=== PATIENT | female | born 1965 | race Caucasian/White ===

== ENCOUNTER 2018-03-08 08:42 | Inpatient (IN) ==
[~2018-03-08 08:42] MED LIST: LIDOCAINE 1% (10mg/ml) 2mL INJ PF SDV ID ONE
[2018-03-08] MEDS ORDERED: ENOXAPARIN 40 MG/0.4 ML INJECTION SQ ONE (09:00)
[2018-03-08 09:12] VITALS: BMI 39.2
[2018-03-08] MEDS: LR 1,000 ML IV SCH ×3 (09:38→18:26)
[2018-03-08] MEDS ORDERED: NOZIN NASAL SWAB NAS ONE (10:00)
--- NOTE | 2018-03-08 10:45 | Anesthesia Preoperative Report ---
Anesthesia Preoperative Record - Date and Time Date: 03/08/18 Preoperative Diagnosis: Sigmoid Colon Resection C18.7 NPO Since Date: 03/07/18 NPO Since Time: 00:00 Allergies/Adverse Reactions: Allergies Allergy/AdvReac Type Severity Reaction Status Date / Time clarithromycin Allergy Unknown RASH Verified 03/08/18 09:28 codeine Allergy Unknown DIZZINESS,N Verified 03/08/18 09:28 AUSEA Sulfa (Sulfonamide Allergy Unknown RASH Verified 03/08/18 09:28 Antibiotics) - Vital Signs Vital Signs: Pulse Rate 77 03/08/18 09:32 Respiratory Rate 15 03/08/18 08:58 Blood Pressure 133/87 03/08/18 08:58 Pulse Oximetry 93 03/08/18 08:58 Height and Weight: Height 1.61 m Weight 102.2 kg Body Mass Index 39.2 - Medications Inpatient Medications: Current Medications Ertapenem 1 g/ Sodium Chloride 100 mls @ 200 mls/hr IV PREOP ONE Stop: 03/08/18 14:10 Lactated Ringer's (Lactated Ringers) 1,000 mls @ 50 mls/hr IV .Q20H CY Last Admin: 03/08/18 09:38 Dose: 50 mls/hr Home Medications: Home Medications Medication Instructions Recorded Confirmed Type Albuterol Sulfate [Proventil Hfa 6.7 gm IH PRN PRN #0 10/16/12 03/08/18 History 90mcg] Multivitamin [Multivitamins] 1 each PO DAILY #0 10/16/12 03/08/18 History Budesonide/Formoterol 80/4.5 6.9 gm IH DAILY #0 06/24/13 03/08/18 History [Symbicort Inhaler] EPINEPHrine Pen [Epipen] 0.3 mg IM PRN PRN #0 06/24/13 03/07/18 History Butalbital/Aspirin/Caffeine 50 mg PO PRN PRN #0 06/21/15 03/08/18 History [Fiorinal 50-325-40 mg Capsule] Cetirizine HCl [Zyrtec] 1 cap PO DAILY #0 cap 06/21/15 03/08/18 History Chlorthalidone 1 tab PO WB #0 tab 06/21/15 03/08/18 History Levothyroxine Tab [Synthroid] 1 tab PO HS #0 tab 06/21/15 03/08/18 History Lutein 6 mg PO DAILY #0 06/21/15 03/08/18 History Montelukast Sodium [Singulair] 10 mg PO HS #0 tab 06/21/15 03/08/18 History Glucophage (metformin) 500 mg 500 mg PO BID 01/29/18 03/08/18 History tablet Xanax (alprazolam) 0.25 mg tablet 0.25 mg PO BID PRN 01/29/18 03/08/18 History labetalol 100 mg tablet 100 mg PO BID 01/29/18 03/08/18 History Cyclobenzaprine [Flexeril] 1 tab PO PRN PRN 02/18/18 03/08/18 History Losartan Potassium [Cozaar] 100 mg PO DAILY 02/18/18 03/08/18 History Is Patient on Beta Martha?: Yes Beta Martha Last Dose Date/Time: 03/07/18 @ 2300 - Medical History Respiratory: Reports: Asthma, Sleep Apnea (doesn't use CPAP) Cardiovascular: Reports: Hypertension, Other (stress test 2015) Gastrointestional: Reports: Morbid Obesity, Other (COLON CANCER) Renal/Endocrine: Reports: Diabetes Mellitus Type 2 (pre-diabetic), Thyroid Disease (hypothyroidism) Other History: Reports: Cancer (COLON) - Surgical History HEENT Surgeries: Reports: Nose Surgery, Oral Surgery (wisdom teeth extraction) Respiratory Surgery/Treatments: Reports: Other (does not use cpap) GI Surgery/Treatments: Reports: Appendectomy Musculoskeletal Surgery/Tx: Reports: Knee Arthroscopy (left) Reproductive Surgery/Treatment: Reports: Hysterectomy Anesthesia Reactions: None Hx Family Anesthesia Reaction: No History of Motion Sickness: No - Social History Smoking Status: Never smoker Hx Chewing Tobacco Use: No Second Hand Exposure: No Substance Use Type: does not use Alcohol Intake: never Alcohol Intake Frequency: does not drink - Pertinent Findings Laboratory: CBC and BMP 03/08/18 09:06 03/08/18 09:06 BMP 03/08/18 09:06 Sodium 140 Potassium 3.1 L Chloride 100 Carbon Dioxide 28 BUN 12.0 Creatinine 0.8 Glucose 132 H Calcium 9.5 Liver Function 03/08/18 Range/Units 09:06 Total Bilirubin 0.80 (0.20-1.30) MG/DL AST 25 (14-36) U/L ALT 27 (1-35) U/L Alkaline Phosphatase 117 (38-126) U/L Albumin 4.6 (3.5-5.0) g/dL EKG: Sinus Rhythm - Physical Exam Respiratory Exam: Present: lungs clear, bilateral breath sounds equal Cardiovascular Exam: Present: regular rate and rhythm - Airway Assessment Mallampati Score: II TMD: 3 Fingerbreadths Neck Extension: fair Teeth: chipped teeth/crowns, other (right side of jaw clicks. ) Overall Assessment: may be difficult mask vent (morbidly obese), may be difficult intubation - ASA ASA Score: 3 - Plan Anesthesia: General Inhalation Gases - Discussion Discussion: Discussed risks/options/alternatives of anesthesia and questions answered. Patient consents. Nursing pain assessment noted. Present for Discussion: family member Attestation Statement: Prior to the delivery of any anesthetic medication, I examined the patient, developed the plan, obtained the patient's consent and discussed the risk and benefits of the procedure with the patient/guardian. - Additional Information Seen by Anesthesia: Yes
[2018-03-08] MEDS ORDERED: FentaNYL 250 MCG/5 ML INJECTION ONE ×2 (12:10→16:11)
[2018-03-08] MEDS ORDERED: SUCCINYLCHOLINE 20mg/mL 10mL INJECTION ONE (12:11)
[2018-03-08] MEDS ORDERED: ROCURONIUM 50 MG/5 ML INJECTION IVP ONE ×3 (12:11→15:23)
[2018-03-08] MEDS ORDERED: KETAMINE 500 MG/10 ML INJECTION ONE (12:12)
[2018-03-08] MEDS ORDERED: GLYCOPYRROLATE 0.4 MG/2 ML INJECTION ONE (12:15)
[2018-03-08] MEDS ORDERED: ONDANSETRON 4 MG/2 ML INJECTION ONE (13:15)
[2018-03-08] MEDS ORDERED: DEXAMETHASONE 4 MG/ML INJECTION ONE (13:15)
[2018-03-08] MEDS ORDERED: INDOCYANINE GREEN 25mg INJECTION ONE (13:25)
[2018-03-08] MEDS ORDERED: ERTAPENEM 1 G in NS 100 ML IV ONE (13:41)
[2018-03-08] MEDS ORDERED: SUGAMMADEX 200mg/2ml INJECTION IVP ONE (17:28)
--- NOTE | 2018-03-08 18:03 | General Surgery Procedure Note ---
Date of Procedure: 03/08/18 Surgeon: Nolan Postoperative Diagnosis: colon cancer Procedure: Low anterior colon resection Estimated Blood Loss: See Anesthesia Record.
--- NOTE | 2018-03-08 18:30 | Anesthesia Postoperative Note ---
- Date and Time Date: 03/08/18 Time: 18:28 - Status Patient Participated in Evaluation: Patient Participated in Person Vital Signs: Temperature 99.3 F 03/08/18 17:48 Pulse Rate 81 03/08/18 18:25 Respiratory Rate 10 03/08/18 18:25 Blood Pressure 111/57 03/08/18 18:25 Pulse Oximetry 97 03/08/18 18:25 Respiratory Function: Airway Patent, Regular Respirations Cardiovascular Function: Regular Pulse Mental Status: Alert and Oriented Pain Intensity: 4 Hydration: IV Infusing Complications During Recover: None Apparent Post Anesthesia Care Notes: Bi PAP will be readily available in ICU. - Follow-Up Instructions Instructions: Per Surgeon
[2018-03-08] MEDS ORDERED: ONDANSETRON 4 MG/2 ML INJECTION IVP PRN (18:56)
[2018-03-08] MEDS ORDERED: PROMETHAZINE 25 MG INJECTION IVP PRN (18:56)
[2018-03-08] MEDS: NS 1,000 ML IV SCH (19:02)
[2018-03-08] MEDS: MORPHINE SULFATE 10mg/ml INJECTION IV PRN (19:02)
[2018-03-08] MEDS: KETOROLAC 30 MG/ML INJECTION IVP PRN (20:24)
[2018-03-09] MEDS: MORPHINE SULFATE 10mg/ml INJECTION IV PRN ×3 (00:11→16:46)
[2018-03-09] MEDS: NS 1,000 ML IV SCH (05:55)
[2018-03-09] MEDS: KETOROLAC 30 MG/ML INJECTION IVP PRN ×3 (07:13→23:42)
[2018-03-09] MEDS: ENOXAPARIN 40 MG/0.4 ML INJECTION SQ SCH (09:33)
[2018-03-09] MEDS ORDERED: INSULIN ASPART 100unit/ml INJECTION SQ PRN (11:40)
[2018-03-09] MEDS ORDERED: NS 500 ML IV SCH (11:45)
[2018-03-09] MEDS: NS with KCL 20 mEq 1,000 ML IV SCH ×2 (12:09→23:03)
[2018-03-09] MEDS: FAMOTIDINE PB 20 MG/50 ML BAG IV SCH ×2 (12:15→23:46)
--- NOTE | 2018-03-09 12:15 | Progress Note ---
DATE 03/09/2018 POSTOP DAY #1 HISTORY OF PRESENT ILLNESS The patient is in the intensive care unit. The patient has been up in a chair once so far today. The patient has been doing well overall since her operation yesterday. She has had some low urine output and has needed to have fluid challenges of normal saline to help with the urine output. PHYSICAL EXAMINATION VITAL SIGNS: Temperature is 98.8 degrees Fahrenheit oral. Pulse is 98. Respiratory rate is 18. Blood pressure is 112/59. Oxygen saturation is 92% on oxygen at 1 liter per minute by nasal cannula. NEUROLOGIC: The patient is alert and oriented. ABDOMEN: Dressings are left in place at the abdominal incision. INTAKE AND OUTPUT Urine output has been adequate but borderline since the operation yesterday. LABORATORY DATA White blood cell count is 18,800 today with 14 bands. Hemoglobin is 11.5. Hematocrit is 34.2. Serum potassium was 3.1 at admission preoperatively yesterday. Serum potassium is 3.5 today. Serum sodium is 142. Serum creatinine is 1. Serum glucose was 154 this morning. The most recent glucometer reading was 158. IMPRESSION 1. Doing well overall since low anterior colon resection with primary colorectal anastomosis on 03/08/2018. 2. Hypokalemia. PLAN 1. Keep patient in the intensive care unit yet at this time. 2. Keep Briceño catheter in place yet at this time because of need for monitoring because of a low urine output which the patient has had. 3. Continue to get the patient up out of bed in a chair and ambulate the patient. 4. Continue Lovenox and sequential compression devices for deep venous thrombosis prophylaxis. 5. Continue incentive spirometry. 6. Intravenous fluids are going to be changed from normal saline to normal saline with 20 mEq KCl per liter to help correct the hypokalemia. 7. Intravenous Pepcid for GI prophylaxis. 8. Make sliding scale insulin available for glucose control. [facility]
--- NOTE | 2018-03-09 14:36 | Operative Note ---
DATE OF OPERATION 03/08/2018 PREOPERATIVE DIAGNOSES 1. Invasive colonic adenocarcinoma at mid sigmoid colon. 2. BMI of 39.5. POSTOPERATIVE DIAGNOSES 1. 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 2. BMI of 39.5. 3. Multiple solid hepatic nodules. 4. Incarcerated epigastric hernia. OPERATION Laparotomy, mobilization of splenic flexure of colon, low anterior colon resection with colorectal anastomosis, wedge excision and biopsy of two hepatic nodules and repair of incarcerated epigastric hernia. SURGEON Dr. Francisco SORT LINE Dr. Betancourt ANESTHESIA General. ASA Class 3 FINDINGS This patient did have a mass at the distal sigmoid colon. It was located just a short distance proximal to the peritoneal reflection at the peritoneal cul-de- sac. The patient was noted to have a short contracted mesentery at the left side of the colon. The mesentery was filled with more than the usual amount of adipose tissue with a short contracted mesentery in this patient. There was no long loop of sigmoid colon in this patient. There was no ascites present. There were no peritoneal implants present anywhere. No obvious enlarged palpable lymph nodes were seen anywhere in the mesentery of the sigmoid colon. As the abdominal incision was made, the patient was found to have an incarcerated epigastric hernia. There was a small fascial defect at the midline at the linea alba superior to the level of the umbilicus. Preperitoneal adipose tissue came out through this small fascial defect and was incarcerated at the subcutaneous tissue level. The patient was noted to have multiple white hard nodules at the liver. The patient had one white hard nodule which was between 5 and 10 mm in size at segment II of the left lobe of the liver. This was at the superior margin of segment II of the left lobe of the liver adjacent to the anterior coronary ligament. This was at the anterior surface of the liver and was visible. Another hard nodule could be palpated within segment III of the liver. This was not at the anterior surface of the liver. It was deeper within the liver but could still be palpated. It was a short distance beneath the anterior surface of the liver. When a wedge of this nodule was removed, it was found to be a solid hard white nodule over 1 cm in size. This was in segment III of the liver. The patient had another small white hard solid nodule at the liver at segment IV of the liver. This was at the superior end of segment IV of the liver so it would be in subsegment Cristobal. This was at the anterior surface of the liver and was visible. It looked similar to the other two nodules. These were the three largest nodules seen. The patient did have numerous other white firm nodules which were 1 to 2 mm in size throughout the right lobe of the liver as well as at other areas at the left lobe of the liver. There were enough of these tiny white nodules that all segments of the liver were probably involved with them. Most of the nodule in segment II of the liver was excised and submitted for frozen section examination by the pathologist. A wedge out of the center of the nodule at segment III of the liver was removed and submitted for frozen section examination by the pathologist. The pathologist did return a verbal frozen section examination report stating that it was not possible to determine the nature of the nodules precisely at frozen section examination. This appeared to be some type of tubular neoplasm. It could possibly be metastatic adenocarcinoma from the sigmoid colon tumor but this was not certain. Another possibility was that it might be a bile duct adenoma. The uterus and both fallopian tubers were absent as a result of pervious operative removal. Both ovaries appeared normal. DESCRIPTION OF OPERATION The patient was placed in supine position on the operating table. General anesthesia was satisfactorily induced. The patient was placed in low lithotomy position on the operating table. The abdomen and the external genitalia and the perianal area were all prepped and draped in routine sterile fashion. A midline vertically oriented abdominal incision was made and extended through the abdominal wall. As this incision was made at a level superior to the umbilicus at the midline, the incarcerated epigastric hernia was identified. The patient did have a hernia sac which was dissected out and excised and removed. The preperitoneal adipose tissue which was incarcerated within the hernia was also excised at this time. The midline incision was extended through the hernia as the incision was made. The peritoneal cavity was entered. An Oleg Wound Protector was placed at the incision. The sigmoid colon region of the abdomen was explored at this time. The sigmoid colon was mobilized medially. Peritoneum was divided at the base of the sigmoid colon mesentery on the left side of the mesentery. The peritoneum was divided at the left lateral gutter along the white line of Toldt. The peritoneum was divided at the base of the sigmoid colon mesentery at the left side of the mesentery down towards the pelvic cul-de-sac. The sigmoid colon was mobilized medially. The left ureter was dissected out and identified and carefully preserved from injury during this time. The position of the left ureter was referred to throughout the remainder of the operation to preserve the left ureter from any injury. The mesentery was short and contracted enough at the sigmoid colon that it was seen at this time that the patient would need to have mobilization of the splenic flexure in order to have a sigmoid colon resection and primary anastomosis. The incision was extended superiorly. The Oleg Wound Protector was kept in place. The Codman retractor was now assembled and used to provide exposure. The splenic flexure of the colon was mobilized. Some adhesions of greater omentum to the outside surface of the spleen were divided at this time to avoid any injury at the capsular surface of the spleen. The descending colon was mobilized medially. Peritoneum was divided along the white line of Toldt and the descending colon and splenic flexure were mobilized medially. The distal transverse colon was from the greater omentum. The splenic flexure of the colon was mobilized medially. It was thought that the splenic flexure of the colon in this patient was mobilized maximally. Attention was then directed back to the pelvis. The tumor in the distal sigmoid colon was just proximal to the rectosigmoid junction. Peritoneum was divided along the anterior surface of the colon at the rectosigmoid junction. The proximal rectum was dissected out at this time on the anterior side and on right and left sides. The rectum was dissected out down into the pelvis all the way down to about the mid-rectum level. A dissection plane was then extended around posterior to the rectum at the mid-rectum level. It was thought as this was being done that enough dissection had occurred to get more than 4 to 5 cm of uninvolved colon and rectum resected distal to the level of the tumor. A distal resection margin was selected with the intent to have more than 4 to 5 cm of distal colon and rectum beyond the tumor included in the resection specimen. The Contour stapler was applied to the mid rectum at this level and fired and used to divide the rectum at the mid rectum at the distal resection margin. Attention was then directed back to the mid sigmoid colon. The sigmoid colon had been mobilized medially. The position of the left ureter was again referred to and the left ureter was reidentified. The mesentery of the sigmoid colon was transilluminated at this time and blood vessels to the sigmoid colon were examined. A proximal resection margin was selected at the mid sigmoid colon. Even with all the mobilization of the splenic flexure, this would just barely allow the mid sigmoid colon to be brought down to the mid rectum for anastomosis without tension. A large blood vessel was identified going up to the colon just proximal to the proximal resection margin. This blood vessel was preserved. A proximal resection margin was selected. The mid sigmoid colon was divided at the proximal resection margin with the TLC75 linear cutter stapler. The sigmoid colon mesentery was then divided at the level of the mid sigmoid colon from the colon down towards the base of the mesentery. The sigmoid colon mesentery was divided by doubly clamping the mesentery with right angle clamps, dividing the mesentery between right angle clamps and ligating the pedicles of sigmoid colon mesentery with 0-Vicryl ligatures. As this division of the mesentery was continued down towards the base of the mesentery, the superior hemorrhoidal artery and vein were identified. The superior hemorrhoidal artery and vein were each dissected out and skeletonized. The superior hemorrhoidal vein was doubly clamped with right angle clamps, divided between clamps and ligated with 0-Vicryl suture. The superior hemorrhoidal artery was then separately doubly clamped with right angle clamps, divided between clamps and ligated with 0-Vicryl ligatures. The dissection was then continued the remainder of the way down to the base of the mesentery. The mesentery was then divided at the level of the base of the distal sigmoid colon mesentery by doubly clamping the mesentery at this level with right clamps, dividing the mesentery between clamps and ligating with 0- Vicryl ligatures. This dissection was continued to the level of the sacral promontory. At the level of the sacral promontory, the areolar tissue plane beneath the mesorectum was identified. Dissection was extended distally beneath the distal sigmoid colon and the proximal rectum in this areolar tissue plane with the monopolar electrosurgery device. This was done to get a total mesorectal excision of the mesentery associated with the proximal rectum which was divided and be in the correct plane of dissection beneath the distal sigmoid colon where the tumor was located. This dissection through this areolar tissue plane was continued distally until the distal resection margin at the mid rectum was reached. The specimen of distal sigmoid colon and proximal rectum was then removed and handed off and placed on a side table. The specimen was opened. The tumor was identified at the distal sigmoid colon. Consideration was given at this time as to whether or not any additional rectum could be removed to get a wider distal resection margin. Even with the splenic flexure maximally mobilized, it was noted that the proximal resection margin of the mid sigmoid colon would just barely reach down to the mid rectum in this patient with a short contracted mesentery. The peritoneal cavity had been explored to some extent earlier. Prior to constructing the anastomosis, a decision was made to more thoroughly explore the superior part of the peritoneal cavity. The liver was more closely examined at this time. The nodules at the liver were identified at this time. In order to have exposure of the liver to biopsy these nodules, the midline vertically oriented abdominal incision did need to be extended superiorly at this time. This did allow visualization of the two nodules which were visible at the anterior surface of the liver at the most superior margin of the liver adjacent to the diaphragm. The nodule at the anterior surface of the liver in liver segment II was adjacent to the anterior coronary ligament. This nodule was completely or nearly completely excised with Metzenbaum scissors at this time and submitted to the pathologist for frozen section examination. This was a wedge excision. The wedge excision site was then closed at this area with placement of some simple interrupted stitches using 3-0 Vicryl suture. Hemostasis appeared be satisfactory at this area. Another nodule could be palpated within segment III of the liver beneath the anterior surface of the liver. Scalpel was used to excise a wedge of the liver at this area. This wedge of liver did contain a piece of this white hard nodule at the center of the nodule. No attempt was made to excise the entire nodule. The wedge biopsy of the nodule specimen was submitted for frozen section examination. Some coagulation of bleeding points at this wedge biopsy site was performed with the monopolar electrosurgery device. This site at the anterior surface of the liver was then closed with a series of simple interrupted stitches using 3-0 Vicryl suture. This did appear to provide complete hemostasis at both of these sites. The pathologist did return a verbal frozen section examination report with results as described above. No attempt was made to biopsy the white nodule that was visible at the surface of the liver at segment IV of the liver. No attempt was made to excise any of the other tiny white nodules throughout the rest of the liver. Attention was directed back to performing the anastomosis of the mid sigmoid colon to the mid rectum. The staple line at the colon at the proximal resection margin was excised. The CEEA sizers were used at this time to see what type of stapling device to use. The 28-mm CEEA sizer was able to be easily introduced into the opening at the mid sigmoid colon at the proximal resection margin. The EthiYext brand, [id number] stapler was then selected for use. This was an end-to-end type of stapler. The anvil from the stapler was introduced into the opening at the mid sigmoid colon at the proximal resection margin. A pursestring stitch was placed around the margins of the colon at the proximal resection margin with 3-0 Prolene suture. The pursestring stitch was tied down around the anvil. The Ethicon brand [id number] stapler was then introduced into the rectum. The stapler was advanced through the rectum up to the level of the distal resection margin at the rectum. The trocar of the stapling device was advanced through the colon just anterior to the middle of the staple line. The anvil was then connected to the cartridge of the stapling device. The stapling device was then closed. The stapling device was fired. This did create a circular end-to-end anastomosis between the two ends of the colon and rectum. The stapling device was removed from the rectum. The stapling device was opened. There were two complete doughnuts of tissue in the stapling device. There appeared to be a good blood supply to the end of the mid sigmoid colon which had been brought down to the anastomosis. There was no tension on the anastomosis but the mid sigmoid colon was just able to be brought down to the anastomosis without tension without any extra colon to spare. There was no twisting of the anastomosis. The anastomosis was then tested. A rigid proctoscope was introduced into the rectum. Air was instilled into the rectum and colon with the rigid proctoscope. Air was noted to distend up the colon proximal to the anastomosis. Water was poured into the peritoneal cavity at the pelvis to cover the anastomosis before the air was instilled into the rectum and colon. Air was then noted to distend up the colon proximal to the anastomosis with no bubbling of air up through the water in the pelvis to suggest any leak at the anastomosis at this time. The anastomosis was thought to be airtight. The rigid proctoscope was removed from the rectum. The anastomosis was thought to be airtight at this time. Irrigation had been performed throughout the peritoneal cavity throughout the course of the operation. No further irrigation was performed at this time. Hemostasis appeared to be satisfactory throughout the peritoneal cavity. The Codman retractor was removed. The greater omentum was brought down over the loops of the intestine. The abdominal incision was closed. The fascial layer of the incision was closed with a continuous simple [id number] stitch using #1 PDS suture. Closure of the fascia at the level superior to the umbilicus did close the area where the epigastric hernia had previously been located. This did result in repair of the epigastric hernia by the end of the operation. Skin margins at the incision were reapproximated with skin homero. Sterile dressings were applied. Sponge, needle and instrument counts were all correct. The patient was taken out of low lithotomy position and returned back to supine position. The patient did appear to tolerate the operation well. The patient was transferred from the operating room to the recovery room in satisfactory condition. [facility]
[2018-03-09] MEDS ORDERED: FUROSEMIDE 20 MG/2 ML INJECTION IVP ONE (15:58)
[2018-03-09] MEDS ORDERED: PNEUMOCOCCAL 13 VACCINE 0.5ml INJECTION IM ONE (16:44)
[2018-03-10] MEDS: KETOROLAC 30 MG/ML INJECTION IVP PRN ×3 (07:14→19:54)
[2018-03-10] MEDS: ENOXAPARIN 40 MG/0.4 ML INJECTION SQ SCH (08:23)
[2018-03-10] MEDS ORDERED: LIDOCAINE 1% INJ 10 MG, POTASSIUM CHLORIDE INJ 10 MEQ in NS 100 ML IV SCH (08:45)
[2018-03-10] MEDS: POTASSIUM CHLORIDE IV SCH ×4 (09:04→14:01)
[2018-03-10] MEDS: 1/2 NS with KCL 20mEq 1,000 ML IV SCH ×2 (10:45→21:10)
[2018-03-10] MEDS: FAMOTIDINE PB 20 MG/50 ML BAG IV SCH ×2 (12:07→23:44)
[2018-03-10] MEDS ORDERED: BUMETANIDE 2.5mg/10ml INJECTION IVP ONE (15:40)
[2018-03-11] MEDS: KETOROLAC 30 MG/ML INJECTION IVP PRN ×2 (07:43→14:30)
[2018-03-11] MEDS: 1/2 NS with KCL 20mEq 1,000 ML IV SCH ×3 (07:46→22:21)
[2018-03-11] MEDS: ENOXAPARIN 40 MG/0.4 ML INJECTION SQ SCH (08:23)
--- NOTE | 2018-03-11 09:21 | Progress Note ---
DATE 03/10/2018 POSTOP DAY #2 HISTORY OF PRESENT ILLNESS The patient remains in the Intensive Care Unit. The patient does have suspected obstructive sleep apnea. The patient has been using BiPAP at night since being admitted to the hospital to maintain her oxygen saturation levels. She has required BiPAP at night to do that. The patient did ambulate in the Intensive Care Unit yesterday. She has been up in a chair this morning. The patient is using incentive spirometry. The patient continues to have borderline urine output. She was given some intravenous Lasix yesterday with minimal response. Urine output has remained borderline in spite of fluid challenges and Lasix so far. PHYSICAL EXAMINATION VITAL SIGNS: Pulse is 89. Respiratory rate is 17. Blood pressure is 148/70. Oxygen saturation is 98% on oxygen at 2 liters/minute by nasal cannula. Blood pressures have been higher today than yesterday. ABDOMEN: The abdominal incision looks good. NEUROLOGIC: The patient is alert and oriented. INTAKE AND OUTPUT Urine output has remained borderline. LABORATORY DATA White blood cell count is 13,400 with no bands. Hemoglobin is 9.8. Hematocrit is 30.2. Serum sodium is 145. Serum potassium is 3.2. Serum creatinine is 0.9. Serum glucose was 96 this morning. The last two glucometer readings have been 121 and 106. IMPRESSION 1. Doing well overall following low anterior colon resection with primary colorectal anastomosis on 03/08/2018. 2. Borderline urine output. 3. Hypokalemia. 4. Suspected obstructive sleep apnea. PLAN 1. Continue to keep the patient in Intensive Care Unit yet at this time. 2. Keep Briceño catheter in place yet at this time because of the need for monitoring because of low urine output. 3. Continue to get the patient out of bed to ambulate patient. 4. Continue Lovenox and sequential compression devices for deep venous thrombosis prophylaxis. 5. Continue incentive spirometry. 6. Continue intravenous Pepcid for GI prophylaxis. 7. Continue to have sliding scale insulin available for glucose control. 8. The patient will be given some supplemental potassium chloride today intravenously to correct the hypokalemia. 9. Baseline intravenous fluids will be changed from normal saline with 20 mEq of potassium chloride per liter to 1/2 normal saline with 20 mEq KCl per liter. MTDD
[2018-03-11] MEDS: FAMOTIDINE PB 20 MG/50 ML BAG IV SCH (12:25)
[2018-03-11] MEDS ORDERED: BUMETANIDE 2.5mg/10ml INJECTION IVP ONE (14:56)
[2018-03-11] MEDS: LABETALOL 100 MG TABLET PO SCH ×2 (15:09→21:58)
[2018-03-11] MEDS ORDERED: Oxycodone *IR* 5 MG TABLET PO PRN (17:44)
[2018-03-11] MEDS: POTASSIUM CHLORIDE PREMIX 10 MEQ/100 ML BAG IV SCH ×3 (18:03→22:55)
--- NOTE | 2018-03-11 18:35 | Progress Note ---
DATE 03/11/2018 POSTOP DAY #3 HISTORY OF PRESENT ILLNESS The patient remains in the intensive care unit. The patient has been ambulating in the intensive care unit. She is up in the chair at this time. The patient did begin passing some flatus today and had a bowel movement today. The patient was started on a clear liquid diet today with toast and crackers. The patient has continued to have borderline urine output. She was given some Bumex yesterday intravenously. The patient was given more intravenous Bumex this afternoon and has now had a good diuresis in response to the intravenous Bumex that she was given today. PHYSICAL EXAMINATION VITAL SIGNS: Temperature is 98 degrees Fahrenheit oral. Pulse is 84. Blood pressure is 150/83. Oxygen saturation is 97% on room air. ABDOMEN: The abdominal incision looks good. INTAKE AND OUTPUT The patient has had a borderline urine output but has now had a good response to intravenous Bumex given today. LABORATORY DATA White blood cell count is 11,000 with no bands. Hemoglobin is 9.4. Hematocrit is 29.3. Serum sodium is 144. Serum potassium is 3.4. Serum creatinine is 0.8. Serum glucose was 78 this morning. Glucometer readings have been 89, 86 and 84. IMPRESSION 1. Doing well overall following low anterior colon resection with primary colorectal anastomosis on 03/08/2018 2. Continued borderline urine output. 3. Hypokalemia which is improved. 4. Suspected obstructive sleep apnea. 5. Type 2 noninsulin-requiring diabetes mellitus. PLAN 1. Keep Briceño catheter in place yet at this time because of the need for monitoring because of low urine output. 2. Continue ambulation of the patient. 3. Continue Lovenox and sequential compression devices for deep venous thrombosis prophylaxis. 4. Continue incentive spirometry. 5. Continue intravenous Pepcid for GI prophylaxis. 6. Continue to have sliding scale insulin available for glucose control. 7. The patient will be given more supplemental potassium chloride intravenously today to correct the hypokalemia. 8. Decrease rate of administration of intravenous fluids since oral intake has been started. 9. Oral analgesics were started today to begin to transition the patient from intravenous analgesics to oral analgesics. 10. The labetalol 100 mg p.o. b.i.d. which the patient was taking preoperatively was resumed today for blood pressure control. 11. Continue to use BiPAP at night to maintain oxygenation in this patient with suspected obstructive sleep apnea. MTDD
[2018-03-12] MEDS: POTASSIUM CHLORIDE PREMIX 10 MEQ/100 ML BAG IV SCH ×2 (00:39→02:18)
[2018-03-12] MEDS: FAMOTIDINE PB 20 MG/50 ML BAG IV SCH (04:25)
[2018-03-12] MEDS: 1/2 NS with KCL 20mEq 1,000 ML IV SCH ×2 (04:30→19:37)
[2018-03-12] MEDS: ACETAMINOPHEN 500 MG TABLET PO PRN (07:26)
[2018-03-12] MEDS: LABETALOL 100 MG TABLET PO SCH ×2 (08:30→20:13)
[2018-03-12] MEDS: ENOXAPARIN 40 MG/0.4 ML INJECTION SQ SCH (08:30)
[2018-03-12] MEDS: IBUPROFEN 200 MG TABLET PO PRN (17:28)
--- NOTE | 2018-03-12 17:37 | Progress Note ---
DATE 03/12/2018 POSTOP DAY #4 HISTORY OF PRESENT ILLNESS The patient was transferred out of the intensive care unit out to a room on the surgical unit yesterday evening. The patient has continued to ambulate in the halls. The patient has been passing flatus. The patient has been tolerating her clear liquid diet with toast and crackers. Urine output is improved today. The patient continues to use BiPAP at night. She has good pain control and has been taking very few analgesics. She took some oral Tylenol for a headache today. PHYSICAL EXAM VITAL SIGNS: Temperature is 97.2 degrees Fahrenheit oral. Pulse is 70. Respiratory rate is 14. Blood pressure is 152/79. Oxygen saturation is 95% on room air. ABDOMEN: The abdominal incision looks good. LABORATORY DATA White blood cell count is 8200 with no bands. Hemoglobin is 9.1. Hematocrit is 27.6. Serum sodium is 142. Serum potassium is 3.8. Serum creatinine is 0.8. Serum glucose is 81. Glucometer readings have been 95 and 89. IMPRESSION 1. Doing well overall following low anterior colon resection with primary colorectal anastomosis on 03/08/2018. 2. Improved urine output. 3. Resolution of hypokalemia. 4. Suspected obstructive sleep apnea. 5. Type 2 noninsulin-requiring diabetes mellitus. PLAN 1. Discontinue Briceño catheter today since the urine output seems to be improved. 2. Continue ambulation of the patient. 3. Continue Lovenox and sequential compression devices for deep venous thrombosis prophylaxis. 4. Continue incentive spirometry. 5. Discontinue intravenous Pepcid. 6. Continue to have sliding scale insulin available for glucose control. 7. Continue intravenous fluids at a rate of 50 mL an hour. 8. Resume more of the preoperative oral medications which the patient was taking prior to admission to the hospital including more of the patient's antihypertensive medication. 9. Discontinue Toradol and start ibuprofen to continue transition of patient from intravenous analgesics to oral analgesics. 10. Advance diet to full liquid diet of toast and crackers. 11. Continue to use BiPAP at night. MTDD
[2018-03-12] MEDS: MONTELUKAST 10 MG TABLET PO SCH (20:13)
[2018-03-12] MEDS: LEVOTHYROXINE 100 MCG TABLET PO SCH (20:13)
[2018-03-13] MEDS: 1/2 NS with KCL 20mEq 1,000 ML IV SCH ×3 (02:52→22:37)
[2018-03-13] MEDS: CHLORTHALIDONE 25 MG TABLET PO SCH (09:04)
[2018-03-13] MEDS: CETIRIZINE 10 MG TABLET PO SCH (09:04)
[2018-03-13] MEDS: LOSARTAN 100 MG TABLET PO SCH (09:04)
[2018-03-13] MEDS: LABETALOL 100 MG TABLET PO SCH ×2 (09:04→20:56)
[2018-03-13] MEDS: ENOXAPARIN 40 MG/0.4 ML INJECTION SQ SCH (09:05)
[2018-03-13] MEDS: IBUPROFEN 200 MG TABLET PO PRN (09:14)
--- NOTE | 2018-03-13 11:48 | Progress Note ---
DATE 03/13/2018 POSTOP DAY #5 HISTORY OF PRESENT ILLNESS The patient is tolerating her full liquid diet with toast and crackers well. She has been ambulating well. She continues to pass flatus. She is using oral analgesics for pain control. The patient has resumed taking all of her preoperative oral antihypertensive medications. PHYSICAL EXAMINATION VITAL SIGNS: Temperature is 97.8 degrees Fahrenheit oral. Pulse is 75. Respiratory rate is 20. Blood pressure is 149/102. Oxygen saturation is 94% on room air. ABDOMEN: The abdominal incision looks good. LABORATORY DATA Most recent glucometer readings have been 89 and 104. IMPRESSION 1. Doing well following low anterior colon resection with primary colorectal anastomosis on 03/08/2018. 2. Suspected obstructive sleep apnea. 3. Type 2 noninsulin-requiring diabetes mellitus. PLAN 1. Advance diet to a regular diet today. 2. Continue ambulation of the patient. 3. Continue Lovenox and sequential compression devices for deep venous thrombosis prophylaxis. 4. Continue incentive spirometry. 5. Continue discharge planning. I did talk with the patient today about her plans for discharge from the hospital. GINA
[2018-03-13] MEDS: ACETAMINOPHEN 500 MG TABLET PO PRN (14:55)
[2018-03-13] MEDS: MONTELUKAST 10 MG TABLET PO SCH (20:56)
[2018-03-13] MEDS: LEVOTHYROXINE 100 MCG TABLET PO SCH (20:56)
[2018-03-14 03:40] VITALS: O2SAT 95
[2018-03-14 07:52] VITALS: BP 161/83; PULSE 72; RESP 18; TEMP 98
[2018-03-14] MEDS: 1/2 NS with KCL 20mEq 1,000 ML IV SCH (08:27)
[2018-03-14] MEDS: LOSARTAN 100 MG TABLET PO SCH (08:42)
[2018-03-14] MEDS: CETIRIZINE 10 MG TABLET PO SCH (08:43)
[2018-03-14] MEDS: LABETALOL 100 MG TABLET PO SCH (08:43)
[2018-03-14] MEDS: CHLORTHALIDONE 25 MG TABLET PO SCH (08:43)
[2018-03-14] MEDS: IBUPROFEN 200 MG TABLET PO PRN (09:08)
--- NOTE | 2018-03-14 13:08 | Progress Note ---
DATE 03/14/2018 POSTOP DAY #6 HISTORY OF PRESENT ILLNESS The patient is now tolerating a regular diet. She is ambulating well. She is using Tylenol and ibuprofen for pain control. PHYSICAL EXAMINATION VITAL SIGNS: Temperature is 98 degrees Fahrenheit oral. Pulse is 72. Respiratory rate is 18. Blood pressure is 161/83. Oxygen saturation is 95% on room air. ABDOMEN: The abdominal incision looks good. LABORATORY DATA Most recent glucometer readings have been 113 and 109. IMPRESSION 1. Doing well following low anterior colon resection with primary colorectal anastomosis on 03/08/2018. 2. Suspected obstructive sleep apnea. 3. Type 2 noninsulin-requiring diabetes mellitus. PLAN Dismiss patient from [facility] today. DISCHARGE MEDICATIONS 1. Resume medications which the patient was taking prior to admission to the hospital. 2. Tylenol 325 mg 1-2 tablets p.o. every 5 hours p.r.n. pain. 3. Ibuprofen 200 mg 2-4 tablets p.o. every 6 hours p.r.n. pain. DISCHARGE DISPOSITION Followup office visit with Dr. Francisco next week. GINA
--- NOTE | 2018-03-16 17:15 | Discharge Summary ---
DISCHARGE DIAGNOSES 1. 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 2. 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 3. BMI of 40.6. 4. Incarcerated epigastric hernia. 5. Left adrenal benign adenoma. 6. Suspected obstructive sleep apnea. 7. Hypokalemia. 8. Asthma. 9. Type 2 noninsulin-requiring diabetes mellitus. 10. Migraine headaches. 11. Perennial allergic rhinitis. 12. Hypothyroidism. 13. Essential hypertension. 14. Anxiety. OPERATION Laparotomy, mobilization of splenic flexure of colon, low anterior colon resection with colorectal anastomosis, wedge excision and biopsy of two hepatic nodules and repair of incarcerated epigastric hernia on 03/08/2018. HOSPITAL COURSE This patient was admitted to [facility] on 03/08/2018. History and physical examination findings at the time of admission to the hospital can be found in the dictated admission history and physical examination report. The patient was admitted with a principal diagnosis of invasive colonic adenocarcinoma at the mid sigmoid colon. The patient was known at the time of admission to the hospital to have a left adrenal benign adenoma. The patient was thought preoperatively to have a BMI of 39.5. BMI at the time of admission to the hospital was 40.6. The patient was known at the time of admission to the hospital to have chronic medical problems including asthma, migraine headaches, perennial allergic rhinitis, hypothyroidism, type 2 noninsulin- requiring diabetes mellitus, essential hypertension and chronic anxiety. Some preoperative lab studies were performed. The patient did have a serum potassium of 3.1 preoperatively at the time of admission to the hospital. The patient did go to the operating room on 03/08/2018. The patient did undergo laparotomy, mobilization of splenic flexure of colon, low anterior colon resection with colorectal anastomosis, wedge excision and biopsy of two hepatic nodules and repair of incarcerated epigastric hernia. Details of operative findings can be found in the dictated operative report. There were no complications during the operation. The patient was found to have some solid hepatic nodules at the time of operation. The patient was also found at the time of operation to have an incarcerated epigastric hernia. The patient was given one dose of Invanz intravenously preoperatively. The patient did not receive any antibiotics postoperatively. As a precautionary measure, the patient was transferred from the recovery room to the intensive care unit for monitoring in the intensive care unit postoperatively. The patient did have some low urine output on the evening of the day of operation which was treated with fluid challenges. On the first postoperative day, the patient remained in the intensive care unit. She was up and out of bed and in her chair in the intensive care unit. The patient continued to have borderline urine output. Vital signs were all stable. White blood cell count was 18,800 with 14 bands. Hemoglobin was 11.5. Hematocrit was 34.2. Serum potassium was 3.5. Serum sodium was 142. Serum creatinine was 1. Serum glucose was 154. The patient had a glucometer reading of 158. The patient appeared to be doing well overall. The hypokalemia was noted. Briceño catheter was kept in place yet at this time because of the need for monitoring because of the low urine output. Lovenox and sequential compression devices were being used for deep venous thrombosis prophylaxis. Incentive spirometry was continued. Intravenous fluids were changed from normal saline to normal saline with 20 mEq of KCl per liter to help correct the hypokalemia. Intravenous Pepcid was being used for GI prophylaxis. A sliding scale insulin order was in place for glucose control. The patient did ambulate in the intensive care unit on the first postoperative day. The patient was given fluid challenges for borderline urine output but did not really have much response to these. The patient was given some intravenous Lasix for treatment of low urine output on the first postop day but also had only minimal response to this. On the second postoperative day, the patient remained in the intensive care unit. The patient did have suspected obstructive sleep apnea. The patient had been using BiPAP at night since being admitted to the hospital to maintain her oxygen saturation levels. She had required the BiPAP at night to do this. The patient continued to be up in the chair and ambulating in the intensive care unit. The patient was using incentive spirometry. The patient continued to have borderline urine output in spite of fluid challenges and intravenous Lasix on the previous day. Vital signs remained stable. The abdominal incision looked good. Urine output remained borderline. White blood cell count was 13,400 with no bands. Hemoglobin was 9.8. Hematocrit was 30.2. Serum sodium was 145. Serum potassium was 3.2. Serum creatinine was 0.9. Serum glucose was 96. The patient did have glucometer readings of 121 and 106. The patient appeared to be doing well overall. Urine output remained borderline. The hypokalemia was again noted. The patient did have suspected obstructive sleep apnea. The patient was kept in the intensive care unit yet at this time. A Briceño catheter was kept in place yet at this time because of the need for monitoring because of the low urine output. Ambulation of the patient continued. Lovenox and sequential compression devices were continued for deep venous thrombosis prophylaxis. Incentive spirometry was continued. Intravenous Pepcid was continued for GI prophylaxis. The patient was given additional supplemental potassium chloride intravenously on the second postoperative day to attempt to correct the hypokalemia. Intravenous fluids were changed at this time from normal saline with 20 mEq of potassium chloride per liter to one-half normal saline with 20 mEq of potassium chloride per liter. The patient was given some intravenous Bumex intravenously on the second postoperative day and did have good diuresis in response to this. Our third postoperative day, the patient remained in the intensive care unit. The patient had been ambulating in the intensive care unit. She was up in the chair. The patient did begin passing some flatus on the third postoperative day and had a bowel movement on the third postoperative day. The patient was started on a clear liquid diet with toast and crackers. The patient continued to have some borderline urine output. The patient was given more intravenous Bumex on the afternoon of the third postoperative day and did have good diuresis in response to the intravenous Bumex. Vital signs remained stable. The abdominal incision looked good. White blood cell count was 11,000 with no bands. Hemoglobin was 9.4. Hematocrit was 29.3. Serum sodium was 144. Serum potassium was 3.4. Serum creatinine was 0.8. Serum glucose was 78. Glucometer readings were 89, 86 and 84. The patient was doing well overall. Urine output remained borderline. Hypokalemia was improved. The patient did have suspected obstructive sleep apnea. The Briceño catheter was kept in place yet at this time because of the need for monitoring because of low urine output. Ambulation of the patient was continued. Lovenox and sequential compression devices were continued for deep venous thrombosis prophylaxis. Incentive spirometry was continued. Intravenous Pepcid was continued for GI prophylaxis. The patient was given even more supplemental potassium chloride intravenously on the third postoperative day to correct the hypokalemia. Rate of administration of intravenous fluids was decreased since oral intake was started at this time. Oral analgesics were started at this time to begin to transition the patient from intravenous analgesics to oral analgesics. The labetalol 100 mg p.o. b.i.d. which the patient had been taking preoperatively was resumed at this time for blood pressure control. BiPAP continued to be used at night to maintain oxygenation of the patient because of her suspected obstructive sleep apnea. The patient was transferred from the intensive care unit out to a room on the surgical unit on the evening of the third postoperative day. On the fourth postoperative day, the patient continued to ambulate in the halls. The patient was passing flatus. The patient was tolerating her clear liquid diet with toast and crackers. Urine output was improved on the fourth postoperative day. The patient continued to use BiPAP at night. She had good pain control and was taking very few analgesics. Vital signs were stable. Abdominal incision looked good. White blood cell count was 8200 with no bands. Hemoglobin was 9.1. Hematocrit was 27.6. Serum sodium was 142. Serum potassium was 3.8. Serum creatinine was 0.8. Serum glucose was 81. Glucometer readings were 95 and 89. The patient appeared to be doing well overall. Urine output was improved. Hypokalemia appeared to be resolved. The Briceño catheter was discontinued on the fourth postoperative day because the urine output now seemed to be improved. Ambulation of the patient was continued. Lovenox and sequential compression devices were continued for deep venous thrombosis prophylaxis. Incentive spirometry was continued. The intravenous Pepcid was discontinued at this time. Intravenous fluids were continued at this time at a rate of 50 mL per hour. More of the preoperative oral medications which the patient was taking prior to admission to the hospital were resumed at this time including more of the patient's antihypertensive medications. Toradol was discontinued at this time and ibuprofen was started to continue transition of the patient from intravenous analgesics to oral analgesics. Diet was advanced to a full liquid diet with toast and crackers. BiPAP was continued at night. On the fifth postoperative day, the patient was tolerating the full liquid diet with toast and crackers. She was ambulating well. She continued to pass flatus. She was using oral analgesics for pain control. All of the preoperative oral antihypertensive medications had now been resumed. Vital signs were stable. The abdominal incision looked good. The patient did have glucometer readings of 89 and 104. Diet was advanced to a regular diet on the fifth postoperative day. Ambulation of the patient was continued. Lovenox and sequential compression devices were continued for deep venous thrombosis prophylaxis. Incentive spirometry was continued. Plans for discharge from hospital were being made at this time. On the sixth postoperative day, the patient was tolerating a regular diet. She was ambulating well. She was using Tylenol and ibuprofen for pain control. Vital signs were stable. The abdominal incision looked good. The patient had glucometer readings of 113 and 109. The patient was dismissed from [facility] in stable condition on the sixth postoperative day. I did receive a pathology report on specimens submitted at the time of the operation performed on 03/08/2018. The pathology report diagnosis on the distal sigmoid colon and proximal rectum specimen did show invasive moderately differentiated colonic adenocarcinoma. The tumor size was 3 cm by 3.2 cm x 0.7 cm. The tumor did focally extend through the muscularis propria and involve the superficial pericolonic adipose tissue. Resection margins were free of tumor. There was no tumor identified in 16 regional lymph nodes. The solid nodules at the liver which were excised and biopsied at the time of operation were found by the pathologist to be benign bile duct adenomas. DISCHARGE MEDICATIONS 1. Proventil inhaler used p.r.n. 2. Multivitamin one p.o. daily. 3. Symbicort inhaler used daily. 4. Fiorinal 50/325/40 mg capsule p.o. p.r.n. 5. Zyrtec one capsule p.o. daily. 6. Chlorthalidone one tablet p.o. with breakfast daily. 7. Levothyroxine one tablet p.o. before breakfast daily. 8. Lutein 6 mg p.o. daily. 9. Singulair 10 mg p.o. at bedtime daily. 10. Glucophage 500 mg one tablet p.o. b.i.d. 11. Xanax 0.25 mg one tablet p.o. b.i.d. p.r.n. 12. Labetalol 100 mg one tablet p.o. b.i.d. 13. Flexeril one tablet p.o. p.r.n. 14. Cozaar 100 mg p.o. daily. 15. Tylenol 325 mg one to two tablets p.o. every five hours p.r.n. pain. 16. Ibuprofen 200 mg two to four tablets p.o. every six hours p.r.n. pain. DISCHARGE DISPOSITION Followup office visit with Dr. Francisoc one week following discharge from the hospital. GINA
== END 2018-03-14 09:20 | disposition home or self-care (01) | DRG 330 ==
LOC: NMC.PERIOP 08:42 → CCU 18:40 → SRG 03-11 20:00
PROVIDERS: ADMIT Surgery; ATTEND Surgery